=== PATIENT | male | born 1960 | race Caucasian/White ===

== ENCOUNTER 2021-09-11 16:31 | Outpatient (CLI) | payer BC | END 2021-09-11 16:32 | disposition home or self-care (01) | LOC: LABBT 16:31 | PROVIDERS: ATTEND Ophthalmology Retina Specialist | DX: H35.372 Puckering of macula, left eye (principal); H54.7 Unspecified visual loss; Z20.822 Contact with and (suspected) exposure to COVID-19 | CPT/HCPCS: U0003; U0005 ==

== ENCOUNTER 2021-09-14 05:59 | Day surgery (SDC) | payer BC ==
[2021-09-12 12:21] VITALS: BMI 27.7
[2021-09-14] MEDS ORDERED: Fluorouracil 100 MG, Enoxaparin Sodium 25 MG, EPINEPHrine 0.3 MG in Ophthalmic Irrigati... IRR SCH (06:00)
[2021-09-14] MEDS ORDERED: Phenylephrine 2.5% Ophth Soln 5 ML BOT ONE (06:11)
[2021-09-14] MEDS ORDERED: Cyclopentolate 1% Opth Drop 2 ML BOT ONE (06:11)
[2021-09-14] MEDS ORDERED: Midazolam HCl 2 mg/2 ml Vial ONE (06:28)
[2021-09-14] MEDS ORDERED: fentaNYL Citrate/PF 100 MCG/2 ML SYRINGE ONE (06:29)
[2021-09-14] MEDS ORDERED: Bupivacaine 0.75% 10 ML VIAL ONE (07:00)
[2021-09-14] MEDS ORDERED: PROPOFOL 200 MG/20 ML VIAL ONE (07:00)
[2021-09-14] MEDS ORDERED: Triamcinolone 40 MG/ML VIAL ONE (07:00)
[2021-09-14] MEDS ORDERED: Maxitrol 0.1% Opth Oint 3.5 GM TUBE ONE (07:00)
[2021-09-14] MEDS ORDERED: CEFAZOLIN 1 GM VIAL ONE (07:00)
[2021-09-14] MEDS ORDERED: Enoxaparin Sodium 30 MG/0.3 ML SYRINGE ONE (07:00)
[2021-09-14] MEDS ORDERED: Indocyanine Green 25 MG/10 ML VIAL ONE (07:00)
[2021-09-14] MEDS ORDERED: Lidocaine 4% PF 5 ML AMP ONE (07:00)
[2021-09-14] MEDS ORDERED: Lidocaine 1% PF 5 ML VIAL ONE ×2 (07:00)
== END 2021-09-14 08:42 | disposition home or self-care (01) ==
LOC: SDC 05:59
PROVIDERS: ATTEND Ophthalmology Retina Specialist
PROC: 08NF3ZZ Release Left Retina, Percutaneous Approach (ICD-10-PCS; principal; 2021-09-14)
PROC: 08T53ZZ Resection of Left Vitreous, Percutaneous Approach (ICD-10-PCS; principal; 2021-09-14)
DX: H35.372 Puckering of macula, left eye (principal); H33.312 Horseshoe tear of retina without detachment, left eye
CPT/HCPCS: J0171; J0690; J1650; J2250; J2704; J3301; J3490; J9190